=== PATIENT | male | born 1965 | race Two or more races ===

== ENCOUNTER → 2024-07-17 | Outpatient (CLI) | payer MEDICARE, MEDICAID, SELFPAY ==
[2024-07-17 13:43] LABS: Glucose, Fasting 92 mg/dL (74-106)
[2024-07-17 13:44] LABS: Glucose 1 Hour 129 mg/dL (120-170)
[2024-07-17 13:45] LABS: Glucose 1/2 Hour 80 mg/dL (110-170)
[2024-07-17 15:22] LABS: Glucose 2 Hour 109 mg/dL (70-120)
[2024-07-17 16:44] LABS: Glucose 3 Hour 71 mg/dL (70-120)
== END | disposition home or self-care (01) ==
PROVIDERS: PCP Family Medicine; Referring Provider Family Medicine; Visit Provider Family Medicine
DX: E16.2 Hypoglycemia, unspecified (principal)
CPT/HCPCS: 36415; 82951; 82952